=== PATIENT | male | born 1970 | race Caucasian/White ===

== ENCOUNTER 2017-01-09 07:20 | Day surgery (SDC) | payer OTHER ==
[~2017-01-09] VITALS: Ht 182.9 cm; Wt 120.0 kg
[~2017-01-09 07:20] MED LIST: CYCL10TA9 PO; GABA-502 PO; IMI100 PO; LORA10CA PO; OXYC1TAB24 PO; Sodium Chloride LOK Flush 10 mL Syringe IV PRN; TAMS0.4C98 PO; fentaNYL-PF 50 mCg/mL 2 mL Inj IVPUSH PRN
[2017-01-09 07:38] VITALS: BP 125/75; PULSE 80; RESP 16; O2SAT 96
[2017-01-09] MEDS: 0.9% Sodium Chloride 1,000 ML IV SCH ×2 (07:54→08:17)
[2017-01-09 08:21] VITALS: BP 122/68; PULSE 69; RESP 16; O2SAT 97
[2017-01-09 08:31] VITALS: BP 111/63; PULSE 60; RESP 14; O2SAT 96
[2017-01-09 08:41] VITALS: BP 116/79; PULSE 68; RESP 16; O2SAT 100
--- NOTE | 2017-01-09 10:17 | ENDO ---
[address] [address] ENDOSCOPY PROCEDURE PATIENT: JAKE LOPEZ : 1970 MR#: [id number] ADMIT: 01/09/2017 JOB ID: [id number] DATE: 01/09/2017 PROCEDURE: Colonoscopy. INDICATION: Abdominal pain. ASA CLASSIFICATION: II MALLAMPATI SCORE: 2 MEDICATIONS: Versed at 7 mg, fentanyl 150 mcg. INSTRUMENT USED: PCF-H180AL PREP QUALITY: Fair. PROCEDURE DETAILS: After informed consent was obtained, the patient was brought into the GI suite where she was placed on oxygen via nasal cannula and monitored with continuous pulse oximeter, telemetry, and blood pressure monitoring. A time-out was performed. Then, she was placed in a left lateral decubitus position and medications were administered for sedation. A digital rectal exam with palpation of the prostate was performed, which was unremarkable. The colonoscope was then inserted into the rectum and advanced under direct visualization to the cecum, which identified by the presence of the ileocecal valve and appendiceal orifice. Once the cecum was reached, the colonoscope was withdrawn back into the rectum as the mucosa and lumen were examined. In the rectum, retroflexion was performed. Following retroflexion, remaining air in the rectum was suctioned, and procedure was completed. FINDINGS: 1. In the descending colon, there was an approximately 5 mm sessile polyp that was removed with a hot snare. 2. In the transverse colon, there was a 4 mm sessile polyp that was removed with a cold snare. 3. Scattered diverticula were seen throughout the sigmoid colon. 4. On retroflexed views in the rectum, prominent anal papillae was noted. IMPRESSION: 1. Transverse colon polyp. 2. Descending polyp. 3. Left-sided diverticulosis. 4. Prominent anal papilla. RECOMMENDATIONS: 1. Avoid NSAIDs and anticoagulants for 72 hours. 2. Fiber-rich diet. 3. Follow up in GI clinic. 4. Repeat colonoscopy pending polyp pathology results. COMPLICATIONS: None. ESTIMATED BLOOD LOSS: Less than 5 mL.
--- NOTE | 2017-01-12 13:54 | PATH ---
SURGICAL PATHOLOGY Attending Physician:Alexander Tesfaye CASE STATUS: Signed Out PATIENT NAME: JAKE LOPEZ PID: [id number] : 1970 DATE COLLECTED:01/09/2017 18:48 SPECIMEN: 1: Colon, Biopsy 2: Colon, Biopsy CLINICAL HISTORY: 1). TRANSVERSE COLON POLYP 2). DESCENDING COLON POLYP FINAL DIAGNOSIS: 1.TRANSVERSE COLON POLYP: TUBULAR ADENOMA. 2.DESCENDING COLON POLYP: TUBULAR ADENOMA. ICD10 CODE D12.4 GROSS DESCRIPTION: Received are two formalin-filled containers, both labeled with the patient' s name: 1. Received in formalin, labeled with the patient' s name and "transverse colon polyp", is one fragment of bedolla, soft tissue measuring 0.2 x 0.1 x 0.1 cm. The fragment is totally submitted in cassette 1A. 2. Received in formalin, labeled with the patient' s name and "descending colon polyp", is one fragment of bedolla, soft tissue measuring 0.4 x 0.3 x 0.3 cm. The fragment is bisected, and all fragments are totally submitted in cassette 2A. ([id number]) MICRO DESCRIPTION: See diagnosis. ICD-9 CODES: CPT CODES: 1: 91066 2: 33494 Electronically Signed Out Paul Sellers MD [facility] Pathology [facility] [address], [place] [address] Technical component performed at [facility], [facility] [address] [address], [address]
== END 2017-01-09 23:59 | disposition home or self-care (01) ==
LOC: END 07:20
PROVIDERS: ATTEND Internal Medicine Gastroenterology
DX: D12.3 Benign neoplasm of transverse colon (principal); D12.4 Benign neoplasm of descending colon; B18.2 Chronic viral hepatitis C; M79.7 Fibromyalgia; G89.4 Chronic pain syndrome; M99.06 Segmental and somatic dysfunction of lower extremity; M99.07 Segmental and somatic dysfunction of upper extremity; F12.90 Cannabis use, unspecified, uncomplicated; D68.9 Coagulation defect, unspecified; Z87.891 Personal history of nicotine dependence
CPT/HCPCS: 45385; 99153; G0500; J2250; J3010; J7030